=== PATIENT | male | born 1995 | race Two or more races ===

== ENCOUNTER 2023-07-03 08:21 | Day surgery (SDC) | payer BC ==
[~2023-07-03 08:21] MED LIST: Albuterol 0.083% 2.5 MG/3 ML Neb Soln NEB PRN; HYDROmorphone 1 MG/ML Syringe IVPUSH PRN; Metoclopramide 10 MG/2 ML SDV IVPUSH PRN; Morphine 2 MG/ML SYRINGE IVPUSH PRN; Naloxone 0.4 MG/ML SDV IVPUSH PRN; Ondansetron 4 MG/2 ML SDV IVPUSH PRN; ceFAZolin 2 GM in Sodium Chloride 0.9% 50 ML IV ONE; droPERidol 5 MG/2 ML SDV IVPUSH PRN; fentaNYL 50 MCG/ML SDV IVPUSH PRN
[2023-07-03] MEDS ORDERED: Ketorolac 30 MG/ML SDV ONE (08:41)
[2023-07-03] MEDS ORDERED: fentaNYL 100 MCG/2 ML SDV ONE (08:41)
[2023-07-03] MEDS ORDERED: Lidocaine 2% 5 ML SDV ONE (08:41)
[2023-07-03] MEDS ORDERED: Propofol 200 MG/20 ML SDV ONE (08:41)
[2023-07-03] MEDS ORDERED: Ondansetron 4 MG/2 ML SDV ONE (08:41)
[2023-07-03] MEDS: Lactated Ringers 1,000 ML IV SCH (08:53)
[2023-07-03] MEDS ORDERED: Bupivacaine 0.5%/EPINEPHrine 1:200,000 30 ML SDV ONE (10:04)
[2023-07-03] MEDS ORDERED: ceFAZolin 2 GM Vial ONE (10:06)
== END 2023-07-03 11:15 | disposition home or self-care (01) ==
LOC: MW.SDS 08:21
PROVIDERS: ATTEND Orthopaedic Surgery
DX: M25.551 Pain in right hip (principal); J01.90 Acute sinusitis, unspecified
CPT/HCPCS: 20680; 76000; J0690; J1885; J2405; J2704; J3010; J7120; 01210; J3490

== ENCOUNTER 2023-11-02 11:18 | Emergency (ER) | payer BC ==
[2023-11-02] MEDS: Ibuprofen 600 MG Tab PO ONE (12:48)
== END 2023-11-02 12:49 | disposition home or self-care (01) ==
LOC: MW.ED 11:18
DX: S92.424A Nondisplaced fracture of distal phalanx of right great toe, initial encounter for closed fracture (principal); Z75.8 Other problems related to medical facilities and other health care; Z88.0 Allergy status to penicillin; W22.8XXA Striking against or struck by other objects, initial encounter
CPT/HCPCS: 73630-26-RT; 73630-RT; 99283